=== PATIENT | male | born 1985 | race Caucasian/White ===

== ENCOUNTER 2017-09-07 18:53 | Emergency (ER) | payer BC ==
[2017-09-07 18:57] VITALS: TEMP 98
--- NOTE | 2017-09-07 19:27 | ED ---
Abdominal Pain HPI - General Chief Complaint: Abdominal Pain Stated Complaint: NVD Time Seen by Provider: 09/07/17 19:27 Source: patient Mode of arrival: ambulatory Limitations: no limitations - History of Present Illness Initial Comments: Patient presents with vomiting and diarrhea for one day. States she had to leave work this morning because of it. Since she had frequent diarrhea and vomiting today, although vomiting is resolved at this time. States nothing more is coming out when he tries to have a bowel movement. Patient states she' s had generalized dull cramping pains throughout his entire abdomen. Denies fevers, chills, URI symptoms, denies urinary symptoms. Patient states she saw small amount of blood on toilet paper and outside of the stool. States he sits on the toilet generally and strains hard for a long time before having bowel movements. States he has intermittent scant amount of blood similar to this over the past one year. Has never seen a physician for. Denies history of intra-abdominal pathology, bowel disease, Crohn's, colitis. Denies any family history of bowel disease other than colon cancer at an older age. - Related Data Home Medications Medication Instructions Recorded Confirmed Venlafaxine HCl ER [Effexor Xr] 37.5 mg PO DAILY 09/07/17 09/07/17 Previous Rx's Medication Instructions Recorded Dicyclomine [Bentyl] 10 mg PO BID PRN #10 capsule 09/07/17 Ondansetron Odt [Zofran Odt] 4 mg PO Q8HR PRN #10 tab 09/07/17 Allergies Allergy/AdvReac Type Severity Reaction Status Date / Time No Known Allergies Allergy Unverified 09/07/17 19:21 Review of Systems ROS Statement: Those systems with pertinent positive or pertinent negative responses have been documented in the HPI. ROS Other: All systems not noted in ROS Statement are negative. Constitutional: Denies: fever, chills, weakness Eyes: Denies: vision change ENT: Denies: throat pain, congestion Respiratory: Denies: cough, dyspnea Cardiovascular: Denies: chest pain, palpitations Endocrine: Denies: fatigue Gastrointestinal: Reports: abdominal pain, nausea, vomiting, diarrhea. Denies: constipation, hematemesis, melena, hematochezia Genitourinary: Denies: dysuria, frequency Musculoskeletal: Denies: back pain Skin: Denies: rash, change in color Neurological: Denies: headache Hematological/Lymphatic: Denies: easy bleeding Past Medical History Past Medical History: No Reported History History of Any Multi-Drug Resistant Organisms: None Reported Past Surgical History: No Surgical Hx Reported Past Psychological History: Anxiety Smoking Status: Current every day smoker Past Alcohol Use History: Occasional Past Drug Use History: None Reported General Exam - General Exam Comments Initial Comments: Sitting up in bed. No acute chest. Conversing normally. Calm, pleasant. Well appearing. Well-groomed well-dressed. Not ill appearing. Does not appear in pain. Limitations: no limitations General appearance: alert, in no apparent distress Head exam: Present: atraumatic, normocephalic Eye exam: Present: normal appearance, PERRL, EOMI ENT exam: Present: normal exam Neck exam: Present: normal inspection Respiratory exam: Present: normal lung sounds bilaterally. Absent: respiratory distress, wheezes, rales Cardiovascular Exam: Present: regular rate, normal rhythm GI/Abdominal exam: Present: soft, normal bowel sounds, other (Abdomen is soft, nontender, nondistended.). Absent: distended, tenderness, guarding, rebound, rigid, diminished bowel sounds, hyperactive bowel sounds, hypoactive bowel sounds Extremities exam: Present: normal inspection Neurological exam: Present: alert, oriented X3 Psychiatric exam: Present: normal affect, normal mood Skin exam: Present: warm, dry, intact, normal color. Absent: rash, cyanosis, diaphoretic Course Vital Signs 09/07/17 18:55 Temperature 98.0 F Pulse Rate 101 H Respiratory 20 Rate Blood Pressure 141/87 O2 Sat by Pulse 99 Oximetry Medical Decision Making - Medical Decision Making Abdomen nontender, patient with onlymild generalized pain at this time. Do not feel imaging warranted at this time. IV fluids, Zofran, Bentyl, Toradol given. Significant lab abnormalities. Hemoglobin within normal range. Patient reevaluated, updated with all results. Abdomen remains nontender. No vomiting or diarrhea in the ER. Patient feels comfortable being discharged home. Patient given prescription for Zofran, Bentyl for home. Patient to follow primary care physician return to ER for new or worsening symptoms. - Lab Data Result diagrams: 09/07/17 19:54 09/07/17 19:54 Lab Results 05/10/18 05/10/18 05/10/18 Range/Units 19:54 19:54 20:00 WBC 8.8 (3.8-10.6) k/uL RBC 5.21 (4.30-5.90) m/uL Hgb 16.1 (13.0-17.5) gm/dL Hct 44.8 (39.0-53.0) % MCV 86.0 (80.0-100.0) fL MCH 31.0 (25.0-35.0) pg MCHC 36.0 (31.0-37.0) g/dL RDW 11.9 (11.5-15.5) % Plt Count 269 (150-450) k/uL Neutrophils % 67 % Lymphocytes % 22 % Monocytes % 6 % Eosinophils % 2 % Basophils % 1 % Neutrophils # 5.9 (1.3-7.7) k/uL Lymphocytes # 2.0 (1.0-4.8) k/uL Monocytes # 0.6 (0-1.0) k/uL Eosinophils # 0.2 (0-0.7) k/uL Basophils # 0.1 (0-0.2) k/uL Sodium 143 (137-145) mmol/L Potassium 4.3 (3.5-5.1) mmol/L Chloride 103 (98-107) mmol/L Carbon Dioxide 26 (22-30) mmol/L Anion Gap 14 mmol/L BUN 16 (9-20) mg/dL Creatinine 0.83 (0.66-1.25) mg/dL Est GFR (CKD-EPI)AfAm >90 (>60 ml/min/1.73 sqM) Est GFR (CKD-EPI)NonAf >90 (>60 ml/min/1.73 sqM) Glucose 78 (74-99) mg/dL Calcium 10.0 (8.4-10.2) mg/dL Total Bilirubin 0.4 (0.2-1.3) mg/dL AST 23 (17-59) U/L ALT 28 (21-72) U/L Alkaline Phosphatase 42 (38-126) U/L Total Protein 7.3 (6.3-8.2) g/dL Albumin 4.8 (3.5-5.0) g/dL Lipase 50 (23-300) U/L Urine Color Yellow Urine Appearance Clear (Clear) Urine pH 6.0 (5.0-8.0) Ur Specific [place] 1.022 (1.001-1.035) Urine Protein Negative (Negative) Urine Glucose (UA) Negative (Negative) Urine Ketones Trace H (Negative) Urine Blood Negative (Negative) Urine Nitrite Negative (Negative) Urine Bilirubin Negative (Negative) Urine Urobilinogen <2.0 (<2.0) mg/dL Ur Leukocyte Esterase Negative (Negative) Disposition Clinical Impression: Blood in stool, Diarrhea, Vomiting Disposition: HOME SELF-CARE Condition: Good Instructions: Acute Diarrhea (ED), Acute Nausea and Vomiting (ED), Gastroenteritis (ED), Rectal Bleeding (ED) Additional Instructions: Follow-up with primary care physician one to 2 days for reevaluation. Return to ER for new or worsening symptoms. Prescriptions: Dicyclomine [Bentyl] 10 mg PO BID PRN #10 capsule PRN Reason: abdominal cramps Ondansetron Odt [Zofran Odt] 4 mg PO Q8HR PRN #10 tab PRN Reason: Nausea Is patient prescribed a controlled substance at d/c from ED?: No Referrals: Darin Badillo MD [Primary Care Provider] - 1-2 days
[2017-09-07] MEDS ORDERED: ONDANSETRON 4 MG/2 ML VIAL IVP STA (19:35)
[2017-09-07] MEDS ORDERED: SODIUM CHLORIDE 0.9% 1,000 ML IV STA (19:35)
[2017-09-07] MEDS ORDERED: KETOROLAC 30 MG/ML 1 ML VIAL IVP STA (19:35)
[2017-09-07] MEDS ORDERED: DICYCLOMINE 20 MG TAB PO STA (19:38)
[2017-09-07 20:10] LABS: Basophils # (A) 0.1 k/uL (0-0.2); Basophils % (A) 1 %; Eosinophils # (A) 0.2 k/uL (0-0.7); Eosinophils % (A) 2 %; HCT 44.8 % (39.0-53.0); HGB 16.1 gm/dL (13.0-17.5); Lymphocytes % (A) 22 %; Monocytes # (A) 0.6 k/uL (0-1.0); Monocytes % (A) 6 %; Neutrophils # (A) 5.9 k/uL (1.3-7.7); Neutrophils % (A) 67 %; Platelet Count 269 k/uL (150-450); RBC 5.21 m/uL (4.30-5.90); RDW 11.9 % (11.5-15.5); WBC 8.8 k/uL (3.8-10.6)
[2017-09-07 20:18] LABS: Appearance,Urine Clear (Clear); Bilirubin,Urine Negative (Negative); Blood,Urine Negative (Negative); Color,Urine Yellow; Glucose,Urine (UA) Negative (Negative); Ketones,Urine Trace (Negative); Leukocyte Esterase,Urine Negative (Negative); Nitrite,Urine Negative (Negative); Protein,Urine Negative (Negative); Specific Gravity,Urine 1.022 (1.001-1.035); Urobilinogen,Urine <2.0 mg/dL (<2.0)
[2017-09-07 20:20] LABS: ALT 28 U/L (21-72); AST 23 U/L (17-59); Albumin 4.8 g/dL (3.5-5.0); Alkaline Phosphatase 42 U/L (38-126); Anion Gap 14 mmol/L; Blood Urea Nitrogen 16 mg/dL (9-20); Carbon Dioxide 26 mmol/L (22-30); Chloride 103 mmol/L (98-107); Glucose 78 mg/dL (74-99); Lipase 50 U/L (23-300); Potassium 4.3 mmol/L (3.5-5.1); Sodium 143 mmol/L (137-145); Total Bilirubin 0.4 mg/dL (0.2-1.3); Total Protein 7.3 g/dL (6.3-8.2)
[2017-09-07 20:45] VITALS: BP 129/86; PULSE 77; RESP 18
== END 2017-09-07 20:45 | disposition home or self-care (01) ==
LOC: EC 18:53
DX: K92.1 Melena (principal); R19.7 Diarrhea, unspecified; R11.10 Vomiting, unspecified; R10.84 Generalized abdominal pain; F41.9 Anxiety disorder, unspecified; F17.200 Nicotine dependence, unspecified, uncomplicated; Z79.899 Other long term (current) drug therapy
CPT/HCPCS: 36415; 80053; 83690; 85025; 81003; 99284; 96374; 96375; 96361; J2405; J1885

== ENCOUNTER 2018-03-11 12:59 | Emergency (ER) | payer BC ==
[2018-03-11] MEDS ORDERED: SODIUM CHLORIDE 0.9% 1,000 ML IV STA (13:47)
--- NOTE | 2018-03-11 13:53 | ED ---
Recheck HPI - General Chief Complaint: Recheck/Abnormal Lab/Rx Stated Complaint: Recheck Time Seen by Provider: 03/11/18 13:19 Source: patient, RN notes reviewed, old records reviewed Mode of arrival: ambulatory Limitations: no limitations - History of Present Illness Initial Comments: Patient is a 32-year-old male with recent diagnosis of TIA one week ago. Patient reports that he's been feeling having a delay and thought process feeling fatigued and "spacey". Patient reports that he was sent here from his boss. 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 Patient states that he has no pain at this time. He is supposed follow-up tomorrow with his PCP. Patient reports symptoms one week ago started as a focal seizure like activity. Patient denies any other complaints. - Related Data Home Medications Medication Instructions Recorded Confirmed Aspirin/Acetaminophen/Caffeine 1 tab PO DAILY PRN 03/02/18 03/02/18 [Excedrin Migraine Caplet] Testosterone Cypionate 200 mg IM QMONTH 03/02/18 03/02/18 [Depo-Testosterone] Venlafaxine HCl ER [Effexor Xr] 75 mg PO DAILY 03/02/18 03/02/18 Allergies Allergy/AdvReac Type Severity Reaction Status Date / Time No Known Allergies Allergy Verified 03/11/18 13:10 Review of Systems ROS Statement: Those systems with pertinent positive or pertinent negative responses have been documented in the HPI. ROS Other: All systems not noted in ROS Statement are negative. Past Medical History Past Medical History: GI Bleed Additional Past Medical History / Comment(s): pleurisy, migraines, gi bleed f/u with pcp History of Any Multi-Drug Resistant Organisms: None Reported Past Surgical History: No Surgical Hx Reported Additional Past Surgical History / Comment(s): cysts removed Past Anesthesia/Blood Transfusion Reactions: No Reported Reaction Past Psychological History: Anxiety Smoking Status: Current some day smoker Past Alcohol Use History: Occasional Past Drug Use History: None Reported - Past Family History Mother Family Medical History: Thyroid Disorder Additional Family Medical History / Comment(s): uncle with colon cancer, aunt with breast cancer Father Family Medical History: Thyroid Disorder General Exam - General Exam Comments Initial Comments: Well appearing 32 year old male, no acute distress. Limitations: no limitations General appearance: alert, in no apparent distress Head exam: Present: atraumatic, normocephalic, normal inspection Eye exam: Present: normal appearance, PERRL, EOMI. Absent: scleral icterus, conjunctival injection, periorbital swelling ENT exam: Present: normal exam, mucous membranes moist Neck exam: Present: normal inspection. Absent: tenderness, meningismus, lymphadenopathy Respiratory exam: Present: normal lung sounds bilaterally. Absent: respiratory distress, wheezes, rales, rhonchi, stridor Cardiovascular Exam: Present: regular rate, normal rhythm, normal heart sounds. Absent: systolic murmur, diastolic murmur, rubs, gallop, clicks GI/Abdominal exam: Present: soft, normal bowel sounds. Absent: distended, tenderness, guarding, rebound, rigid Extremities exam: Present: normal inspection, full ROM, normal capillary refill. Absent: tenderness, pedal edema, joint swelling, calf tenderness Back exam: Present: normal inspection Neurological exam: Present: alert, oriented X3, CN II-XII intact Expanded Patient oriented to: Present: person, place, time Speech: Present: fluid speech Cranial nerves: EOM's Intact: Normal Cerebellar function: Finger to Nose: Normal Upper motor neuron: Pronator Drift: Normal Sensory exam: Upper Extremity Light Touch: Normal, Lower Extremity Light Touch: Normal Motor strength exam: RUE: 5, LUE: 5, RLE: 5, LLE: 5 Eye Response: (4) open spontaneously Motor Response: (6) obeys commands Verbal Response: (5) oriented [place] Total: 15 Psychiatric exam: Present: normal affect, normal mood Skin exam: Present: warm, dry, intact, normal color. Absent: rash Course Vital Signs 03/11/18 03/11/18 13:08 15:17 Temperature 98.1 F 98 F Pulse Rate 91 63 Respiratory 16 18 Rate Blood Pressure 122/88 119/88 O2 Sat by Pulse 99 98 Oximetry Medical Decision Making - Medical Decision Making 32 year old male presents to ED with feeling "spacey" and delayed thought process,that has been consistent since diagnosis of TIA one week ago. Patient has no neurological deficits, otherwise appears well. Today, labs so no acute changes. Patient EKG shows no acute changes. Patient is planned to see PCP and neurology tomorrow to schedule MRI. He had normal CT scan last week. Discussed MRI is next most important step. Patient case discussed with Dr. Jarrell, whom also examined patient. Agreed to discharge patient home to family and to be monitored. Patient agrees to treatment plan and will comply. - Lab Data Result diagrams: 03/11/18 14:15 03/11/18 14:15 Lab Results 03/11/18 03/11/18 03/11/18 Range/Units 14:15 14:15 14:15 WBC 5.8 (3.8-10.6) k/uL RBC 5.44 (4.30-5.90) m/uL Hgb 16.8 (13.0-17.5) gm/dL Hct 49.0 (39.0-53.0) % MCV 90.1 (80.0-100.0) fL MCH 30.8 (25.0-35.0) pg MCHC 34.2 (31.0-37.0) g/dL RDW 12.0 (11.5-15.5) % Plt Count 258 (150-450) k/uL Neutrophils % 55 % Lymphocytes % 30 % Monocytes % 8 % Eosinophils % 4 % Basophils % 1 % Neutrophils # 3.2 (1.3-7.7) k/uL Lymphocytes # 1.8 (1.0-4.8) k/uL Monocytes # 0.4 (0-1.0) k/uL Eosinophils # 0.2 (0-0.7) k/uL Basophils # 0.0 (0-0.2) k/uL PT 10.2 (9.0-12.0) sec INR 1.0 (<1.2) APTT 26.4 (22.0-30.0) sec Sodium 140 (137-145) mmol/L Potassium 4.7 (3.5-5.1) mmol/L Chloride 103 (98-107) mmol/L Carbon Dioxide 26 (22-30) mmol/L Anion Gap 11 mmol/L BUN 15 (9-20) mg/dL Creatinine 0.84 (0.66-1.25) mg/dL Est GFR (CKD-EPI)AfAm >90 (>60 ml/min/1.73 sqM) Est GFR (CKD-EPI)NonAf >90 (>60 ml/min/1.73 sqM) Glucose 92 (74-99) mg/dL Calcium 10.1 (8.4-10.2) mg/dL Total Bilirubin 0.7 (0.2-1.3) mg/dL AST 26 (17-59) U/L ALT 36 (21-72) U/L Alkaline Phosphatase 39 (38-126) U/L Total Protein 8.2 (6.3-8.2) g/dL Albumin 5.0 (3.5-5.0) g/dL TSH 1.280 (0.465-4.680) mIU/L 03/11/18 15:59 EKG performed at 1410 shows normal sinus rhythm with sinus arrhythmia, normal EKG. Ventricular rate of 74 bpm. IN interval is 148 ms. QRS duration 80 ms. QT QTc is 360/401 ms. Disposition Clinical Impression: Fatigue Disposition: HOME SELF-CARE Condition: Good Instructions: Weakness (ED) Additional Instructions: Patient advised to follow-up with her PCP tomorrow. Again following up with neurology. Return to the emergency department if any alarming signs or symptoms occur. Patient should be monitored with another person in case there is any further concerning signs or symptoms such as seizure-like activity. Is patient prescribed a controlled substance at d/c from ED?: No Referrals: Darin Badillo MD [Primary Care Provider] - 1-2 days Time of Disposition: 14:50
[2018-03-11 14:27] LABS: Basophils % (A) 1 %; Eosinophils # (A) 0.2 k/uL (0-0.7); Eosinophils % (A) 4 %; HGB 16.8 gm/dL (13.0-17.5); Lymphocytes # (A) 1.8 k/uL (1.0-4.8); Lymphocytes % (A) 30 %; MCH 30.8 pg (25.0-35.0); MCHC 34.2 g/dL (31.0-37.0); MCV 90.1 fL (80.0-100.0); Mean Platelet Volume 7.2; Monocytes # (A) 0.4 k/uL (0-1.0); Monocytes % (A) 8 %; Neutrophils # (A) 3.2 k/uL (1.3-7.7); Neutrophils % (A) 55 %; Platelet Count 258 k/uL (150-450); RBC 5.44 m/uL (4.30-5.90); WBC 5.8 k/uL (3.8-10.6)
[2018-03-11 14:37] LABS: Partial Thromboplastin Time 26.4 sec (22.0-30.0); Prothrombin Time 10.2 sec (9.0-12.0)
[2018-03-11 14:38] LABS: ALT 36 U/L (21-72); AST 26 U/L (17-59); Alkaline Phosphatase 39 U/L (38-126); Anion Gap 11 mmol/L; Blood Urea Nitrogen 15 mg/dL (9-20); Calcium 10.1 mg/dL (8.4-10.2); Carbon Dioxide 26 mmol/L (22-30); Chloride 103 mmol/L (98-107); Glucose 92 mg/dL (74-99); Potassium 4.7 mmol/L (3.5-5.1); Sodium 140 mmol/L (137-145); Total Bilirubin 0.7 mg/dL (0.2-1.3); Total Protein 8.2 g/dL (6.3-8.2)
[2018-03-11 15:18] VITALS: BP 119/88; PULSE 63; RESP 18; TEMP 98
== END 2018-03-11 15:17 | disposition home or self-care (01) ==
LOC: EC 12:59
DX: R53.83 Other fatigue (principal); F41.9 Anxiety disorder, unspecified; F17.200 Nicotine dependence, unspecified, uncomplicated; Z86.73 Personal history of transient ischemic attack (TIA), and cerebral infarction without residual deficits; Z79.899 Other long term (current) drug therapy
CPT/HCPCS: 36415; 80053; 84443; 85025; 85610; 85730; 93005; 96360; 99284

== ENCOUNTER 2018-04-06 09:31 | Day surgery (SDC) | payer BC ==
[2018-04-05 10:31] VITALS: BMI 29.8
[~2018-04-06 09:31] MED LIST: LACTATED RINGERS 1,000 ML IV SCH
[2018-04-06] MEDS ORDERED: LIDOCAINE 1% 20 ML VIAL (10MG/ML) FOR IV START INTRADERMA ONE (09:50)
[2018-04-06 10:01] VITALS: RESP 16; TEMP 98.9
[2018-04-06] MEDS ORDERED: fentaNYL (PF) 50 MCG/ML 2 ML AMP IV ONE (10:07)
[2018-04-06] MEDS ORDERED: PROPOFOL 10 MG/ML 20 ML VIAL IV ONE (10:16)
--- NOTE | 2018-04-06 10:35 | P.GSHP ---
History of Present Illness H&P Date: 04/06/18 Chief Complaint: GI bleed This is a 32-year-old male who presents today for colonoscopy. Patient's had issues with GI bleed. 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,Empty Sella Syndrome,pleurisy, migraines, gi bleed History of Any Multi-Drug Resistant Organisms: None Reported Past Surgical History: No Surgical Hx Reported Additional Past Surgical History / Comment(s): cysts removed Past Anesthesia/Blood Transfusion Reactions: No Reported Reaction Smoking Status: Current some day smoker - Past Family History Mother Family Medical History: Thyroid Disorder Additional Family Medical History / Comment(s): uncle with colon cancer, aunt with breast cancer Father Family Medical History: Thyroid Disorder Medications and Allergies Home Medications Medication Instructions Recorded Confirmed Type Venlafaxine HCl ER [Effexor Xr] 75 mg PO QAM 03/02/18 04/05/18 History Aspirin 81 mg PO DAILY 04/05/18 04/05/18 History Testosterone Cypionate 200 mg IM Q30D 04/05/18 04/05/18 History [Depo-Testosterone] Allergies Allergy/AdvReac Type Severity Reaction Status Date / Time No Known Allergies Allergy Verified 04/05/18 10:23 Surgical - Exam Vital Signs Temp Pulse Resp BP Pulse Ox 98.9 F 96 16 127/76 96 04/06/18 10:00 04/06/18 10:00 04/06/18 10:00 04/06/18 10:00 04/06/18 10:00 - General well developed, no distress - Eyes PERRL - ENT normal pinna - Neck no masses - Respiratory normal expansion - Cardiovascular Rhythm: regular - Abdomen Abdomen: soft, non tender Assessment and Plan Assessment: GI bleed. We'll perform colonoscopy.
--- NOTE | 2018-04-06 10:53 | P.OP ---
Date of Procedure: 04/06/18 Preoperative Diagnosis: GI bleed Postoperative Diagnosis: Mild internal hemorrhoids Normal colonoscopy Procedure(s) Performed: Colonoscopy Anesthesia: MAC Surgeon: Arley Dale Pathology: none sent Condition: stable Disposition: PACU Description of Procedure: PROCEDURE: The patient was placed on the endoscopy table in the lateral position. Digital rectal examination was performed which revealed no abnormalities. The prostate was symmetrical without nodules. Flexible colonoscope was then placed in the patient's anus and passed throughout the entire colon. The ileocecal valve was visualized. The cecum, ascending, transverse, descending and sigmoid colon were normal. The rectum was normal as well. There were no masses, polyps or diverticula noted in the entire colon. Scope was then withdrawn through the anus and some minimal internal hemorrhoids were noted. There is no evidence of active GI bleed.
[2018-04-06 11:11] VITALS: BP 108/72; PULSE 99
== END 2018-04-06 11:34 | disposition home or self-care (01) ==
LOC: ORWHC2ENDO 09:31
PROVIDERS: ATTEND Surgery
DX: K64.8 Other hemorrhoids (principal); F17.200 Nicotine dependence, unspecified, uncomplicated; Z86.73 Personal history of transient ischemic attack (TIA), and cerebral infarction without residual deficits; Z80.0 Family history of malignant neoplasm of digestive organs; Z79.899 Other long term (current) drug therapy; Z79.82 Long term (current) use of aspirin; Z79.890 Hormone replacement therapy
CPT/HCPCS: 45378; J3010; J2704

== ENCOUNTER → 2018-04-18 | Outpatient (CLI) | payer BC ==
[2018-04-18 16:20] LABS: T4, Free (Free Thyroxine) 1.1 ng/dL (0.80-1.80)
[2018-04-18 18:16] LABS: ACTH 32.1 pg/mL (0.00-45.99)
== END | disposition home or self-care (01) ==
LOC: LABWHC1 10:12
PROVIDERS: ATTEND Internal Medicine Endocrinology, Diabetes & Metabolism
DX: E23.6 Other disorders of pituitary gland (principal)
CPT/HCPCS: 36415; 82024; 82533; 84146; 84305; 84439; 84443; 84480

== ENCOUNTER 2018-07-14 09:24 | Emergency (ER) | payer BC ==
[2018-07-14 09:29] VITALS: RESP 18
[2018-07-14] MEDS ORDERED: MECLIZINE 12.5 MG TAB PO STA (10:11)
--- NOTE | 2018-07-14 10:34 | ED ---
General Adult HPI - General Chief complaint: Recheck/Abnormal Lab/Rx Stated complaint: Tingling in hands Time Seen by Provider: 07/14/18 09:49 Source: patient, RN notes reviewed Mode of arrival: ambulatory Limitations: no limitations - History of Present Illness Initial comments: 32-year-old male presents emergency Department with chief complaint of diz ziness, extremity tingling. Patient states that started this morning when he woke up. Patient states he sat up quickly and symptoms started. He states he has no symptoms at rest worse with movement turning his head left and right. He has no current headache no chest pain or shortness of breath. Patient states she just did not feel well so he felt the need to be evaluated. Patient denies any palpitations, focal weakness. Patient denies any other associated complaints. - Related Data Home Medications Medication Instructions Recorded Confirmed Venlafaxine HCl ER [Effexor Xr] 75 mg PO QAM 03/02/18 07/14/18 Aspirin 81 mg PO DAILY 04/05/18 07/14/18 Testosterone Cypionate 100 mg IM WE 04/05/18 07/14/18 [Depo-Testosterone] Allergies Allergy/AdvReac Type Severity Reaction Status Date / Time No Known Allergies Allergy Verified 07/14/18 09:51 Review of Systems ROS Statement: Those systems with pertinent positive or pertinent negative responses have been documented in the HPI. ROS Other: All systems not noted in ROS Statement are negative. 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,Empty Sella Syndrome,pleurisy, migraines, gi bleed History of Any Multi-Drug Resistant Organisms: None Reported Past Surgical History: No Surgical Hx Reported Additional Past Surgical History / Comment(s): cysts removed Past Anesthesia/Blood Transfusion Reactions: No Reported Reaction Past Psychological History: Anxiety Smoking Status: Current some day smoker Past Alcohol Use History: None Reported Past Drug Use History: None Reported - Past Family History Mother Family Medical History: Thyroid Disorder Additional Family Medical History / Comment(s): uncle with colon cancer, aunt with breast cancer Father Family Medical History: Thyroid Disorder General Exam Limitations: no limitations General appearance: alert, in no apparent distress Head exam: Present: atraumatic, normocephalic, normal inspection Eye exam: Present: normal appearance, PERRL, EOMI. Absent: scleral icterus, conjunctival injection, periorbital swelling ENT exam: Present: normal exam, normal oropharynx, mucous membranes moist, TM's normal bilaterally Neck exam: Present: normal inspection, full ROM. Absent: tenderness, meningismus, lymphadenopathy Respiratory exam: Present: normal lung sounds bilaterally. Absent: respiratory distress, wheezes, rales, rhonchi, stridor Cardiovascular Exam: Present: regular rate, normal rhythm, normal heart sounds. Absent: systolic murmur, diastolic murmur, rubs, gallop, clicks GI/Abdominal exam: Present: soft, normal bowel sounds. Absent: distended, tenderness, guarding, rebound, rigid Extremities exam: Present: normal inspection, full ROM, normal capillary refill, other (Neurovascular intact). Absent: tenderness, pedal edema, joint swelling, calf tenderness Neurological exam: Present: alert, oriented X3, CN II-XII intact Skin exam: Present: warm, dry, intact, normal color. Absent: rash Course Vital Signs 07/14/18 07/14/18 09:26 10:50 Temperature 97.7 F Pulse Rate 92 Pulse Rate [ 97 Sitting] Pulse Rate [ 87 Standing] Pulse Rate [ 77 Supine Pulse Oximetery] Respiratory 18 Rate Blood Pressure 135/86 Blood Pressure 113/90 [Right Arm Sitting] Blood Pressure 115/81 [Right Arm Supine] Blood Pressure 124/98 [Standing] O2 Sat by Pulse 100 Oximetry Medical Decision Making - Medical Decision Making 32-year-old male presented from it chief complaint dizziness, hand tingling. Patient symptoms seemed more related to vertigo. Patient has no neurological deficits no focal weakness. Patient will be discharged with Antivert advised to rest, follow-up with PCP and return for any worsening symptoms. Disposition Clinical Impression: Vertigo, Paresthesia Disposition: HOME SELF-CARE Condition: Stable Instructions (If sedation given, give patient instructions): Vertigo (ED) Additional Instructions: Please return to the Emergency Department if symptoms worsen or any other concerns. Is patient prescribed a controlled substance at d/c from ED?: No Referrals: Darin Badillo MD [Primary Care Provider] - 1-2 days Time of Disposition: 11:10
[2018-07-14] MEDS ORDERED: ACETAMINOPHEN TAB 325 MG TAB PO STA (11:04)
[2018-07-14 12:04] VITALS: BP 128/83; PULSE 66; TEMP 98.2
== END 2018-07-14 12:04 | disposition home or self-care (01) ==
LOC: EC 09:24
DX: R20.2 Paresthesia of skin (principal); R42 Dizziness and giddiness; F41.9 Anxiety disorder, unspecified; F17.200 Nicotine dependence, unspecified, uncomplicated; Z79.82 Long term (current) use of aspirin; Z79.899 Other long term (current) drug therapy; Z86.73 Personal history of transient ischemic attack (TIA), and cerebral infarction without residual deficits
CPT/HCPCS: 93005; 99284

== ENCOUNTER 2018-11-28 22:02 | Emergency (ER) | payer BC ==
[2018-11-28] MEDS ORDERED: SODIUM CHLORIDE 0.9% 500 ML 500 ML IV STA (22:23)
[2018-11-28] MEDS ORDERED: ONDANSETRON 4 MG/2 ML VIAL IVP STA (22:24)
[2018-11-28] MEDS ORDERED: MORPHINE SULFATE 2 MG/ML SYRINGE IVP STA (22:24)
[2018-11-28] MEDS ORDERED: LIDOCAINE 1% INJ 10MG/ML (20 ML MDV) SQ ONE (22:24)
--- NOTE | 2018-11-28 22:31 | ED ---
General Adult HPI - General Chief complaint: Syncope Stated complaint: passed out/hit head on floor Time Seen by Provider: 11/28/18 22:16 Source: patient Mode of arrival: ambulatory Limitations: physical limitation - History of Present Illness Initial comments: 33-year-old male patient presents to the emergency department today for evaluation after experiencing a syncopal episode at home. Patient states he was giving himself an injection of testosterone, states that he feels like he may have hit a nerve because the pain was sudden and intense. Patient states his vision became fuzzy and then he passed out. Parent reports that he she heard a commotion in the bathroom, went in, and patient was lying on the floor unconscious. Patient had multiple lacerations to his face. Patient is currently reporting headache, neck pain, and intermittent blurred vision. Patient states he does feel nauseated but has not vomited. Denies any injury to his back or extremities. Patient denies any back pain, chest pain, shortness of breath, dizziness, weakness, abdominal pain, or difficulties with bowel movements or urination. States his last tetanus vaccine was in May 2018. - Related Data Home Medications Medication Instructions Recorded Confirmed Venlafaxine HCl ER [Effexor Xr] 75 mg PO QAM 03/02/18 07/14/18 Aspirin 81 mg PO DAILY 04/05/18 07/14/18 Testosterone Cypionate 100 mg IM WE 04/05/18 07/14/18 [Depo-Testosterone] Previous Rx's Medication Instructions Recorded Meclizine [Antivert] 25 mg PO TID PRN #15 tab 07/14/18 Allergies Allergy/AdvReac Type Severity Reaction Status Date / Time No Known Allergies Allergy Verified 07/14/18 09:51 Review of Systems ROS Statement: Those systems with pertinent positive or pertinent negative responses have been documented in the HPI. ROS Other: All systems not noted in ROS Statement are negative. 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,Empty Sella Syndrome,pleurisy, migraines, gi bleed History of Any Multi-Drug Resistant Organisms: None Reported Past Surgical History: No Surgical Hx Reported Additional Past Surgical History / Comment(s): cysts removed Past Anesthesia/Blood Transfusion Reactions: No Reported Reaction Past Psychological History: Anxiety Smoking Status: Current some day smoker Past Alcohol Use History: None Reported Past Drug Use History: None Reported - Past Family History Mother Family Medical History: Thyroid Disorder Additional Family Medical History / Comment(s): uncle with colon cancer, aunt with breast cancer Father Family Medical History: Thyroid Disorder General Exam Limitations: physical limitation General appearance: alert, in no apparent distress, other (Physical well- developed, well-nourished adult male patient in no acute distress. Vital signs upon presentation are temperature 98.0F, pulse 74, respirations 16, blood pressure 114/80, pulse ox 97% on room air.) Head exam: Present: other (There is 3 cm laceration noted to the left forehead. There is a small superficial abrasion noted to the left supraorbital region just above the eyebrow. There is small abrasion noted to the right temporal region.) Eye exam: Present: normal appearance, PERRL, EOMI. Absent: scleral icterus, conjunctival injection, nystagmus, periorbital swelling, periorbital tenderness ENT exam: Present: normal exam, normal oropharynx, mucous membranes moist Neck exam: Present: tenderness (Posterior cervical tenderness), full ROM. Absent: normal inspection, meningismus, lymphadenopathy Respiratory exam: Present: normal lung sounds bilaterally. Absent: respiratory distress, wheezes, rales, rhonchi, stridor Cardiovascular Exam: Present: regular rate, normal rhythm, normal heart sounds. Absent: systolic murmur, diastolic murmur, rubs, gallop, clicks GI/Abdominal exam: Present: soft, normal bowel sounds. Absent: distended, tenderness, guarding, rebound, rigid Back exam: Present: normal inspection, other (Nontender, no step-off, no deformity to firm midline palpation of the thoracic and lumbar vertebrae. Full range of motion without pain or limitation.). Absent: vertebral tenderness Neurological exam: Present: alert, oriented X3, CN II-XII intact Psychiatric exam: Present: normal affect, normal mood Skin exam: Present: warm, dry, intact, normal color. Absent: rash Course Vital Signs 11/28/18 11/28/18 11/29/18 22:09 23:38 00:08 Temperature 98.0 F Pulse Rate 74 61 59 L Respiratory 16 18 18 Rate Blood Pressure 114/80 114/77 120/76 O2 Sat by Pulse 97 100 96 Oximetry 11/29/18 00:56 Temperature 98.6 F Pulse Rate 70 Respiratory 18 Rate Blood Pressure 123/78 O2 Sat by Pulse 99 Oximetry EKG Findings - EKG Comments: EKG Findings:: EKG obtained at 2254 shows normal sinus rhythm with a ventricular rate of 76, MN interval 156, QRS duration 92, QT 358, QTC 402. No evidence of ST elevation or depression. Procedures - Laceration Laceration #1 Consent Obtained: verbal consent Indication: laceration Site: face (Left forehead) Size (cm): 3 Description: linear Depth: simple, single layer Anesthetic Used: lidocaine 1% Anesthesia Technique: local infiltration Amount (mls): 3 Pre-repair: irrigated extensively Type of Sutures: nylon Size of Sutures: 6-0 Number of Sutures: 4 Technique: simple, interrupted Patient Tolerated Procedure: well, no complications Medical Decision Making - Medical Decision Making 33-year-old male patient presented to the emergency department today for evaluation after experiencing a syncopal episode with head injury. Physical examination did reveal left frontal hematoma with laceration. Has a small laceration above the left eyebrow and one to the right temporal region. CT of the brain and C-spine were obtained and showed no acute abnormalities. Labs reviewed and are unremarkable. EKG was normal sinus rhythm. Given patient's symptoms of headache and dizziness we will treat for concussion. Laceration was repaired as documented. He is instructed to return in 5 days for suture removal. We did discuss decreased mental and physical activity. He is instructed to take Tylenol Motrin for pain control. He is instructed to follow- up with his primary care physician for recheck in 1-2 days. Return parameters were discussed in detail. He verbalizes understanding and agrees with this plan. - Lab Data Result diagrams: 11/28/18 22:53 11/28/18 22:53 Lab Results 11/28/18 11/28/18 11/28/18 Range/Units 22:53 22:53 22:53 WBC 10.3 (3.8-10.6) k/uL RBC 5.32 (4.30-5.90) m/uL Hgb 16.1 (13.0-17.5) gm/dL Hct 47.5 (39.0-53.0) % MCV 89.2 (80.0-100.0) fL MCH 30.2 (25.0-35.0) pg MCHC 33.9 (31.0-37.0) g/dL RDW 12.0 (11.5-15.5) % Plt Count 294 (150-450) k/uL Neutrophils % 65 % Lymphocytes % 23 % Monocytes % 7 % Eosinophils % 2 % Basophils % 0 % Neutrophils # 6.7 (1.3-7.7) k/uL Lymphocytes # 2.4 (1.0-4.8) k/uL Monocytes # 0.8 (0-1.0) k/uL Eosinophils # 0.2 (0-0.7) k/uL Basophils # 0.0 (0-0.2) k/uL PT 10.5 (9.0-12.0) sec INR 1.0 (<1.2) APTT 24.9 (22.0-30.0) sec Sodium 140 (137-145) mmol/L Potassium 4.1 (3.5-5.1) mmol/L Chloride 104 (98-107) mmol/L Carbon Dioxide 27 (22-30) mmol/L Anion Gap 9 mmol/L BUN 21 H (9-20) mg/dL Creatinine 0.79 (0.66-1.25) mg/dL Est GFR (CKD-EPI)AfAm >90 (>60 ml/min/1.73 sqM) Est GFR (CKD-EPI)NonAf >90 (>60 ml/min/1.73 sqM) Glucose 91 (74-99) mg/dL Calcium 9.3 (8.4-10.2) mg/dL Total Bilirubin 0.2 (0.2-1.3) mg/dL AST 21 (17-59) U/L ALT 21 (21-72) U/L Alkaline Phosphatase 54 (38-126) U/L Troponin I (0.000-0.034) ng/mL Total Protein 7.5 (6.3-8.2) g/dL Albumin 4.6 (3.5-5.0) g/dL 11/28/18 Range/Units 22:53 WBC (3.8-10.6) k/uL RBC (4.30-5.90) m/uL Hgb (13.0-17.5) gm/dL Hct (39.0-53.0) % MCV (80.0-100.0) fL MCH (25.0-35.0) pg MCHC (31.0-37.0) g/dL RDW (11.5-15.5) % Plt Count (150-450) k/uL Neutrophils % % Lymphocytes % % Monocytes % % Eosinophils % % Basophils % % Neutrophils # (1.3-7.7) k/uL Lymphocytes # (1.0-4.8) k/uL Monocytes # (0-1.0) k/uL Eosinophils # (0-0.7) k/uL Basophils # (0-0.2) k/uL PT (9.0-12.0) sec INR (<1.2) APTT (22.0-30.0) sec Sodium (137-145) mmol/L Potassium (3.5-5.1) mmol/L Chloride (98-107) mmol/L Carbon Dioxide (22-30) mmol/L Anion Gap mmol/L BUN (9-20) mg/dL Creatinine (0.66-1.25) mg/dL Est GFR (CKD-EPI)AfAm (>60 ml/min/1.73 sqM) Est GFR (CKD-EPI)NonAf (>60 ml/min/1.73 sqM) Glucose (74-99) mg/dL Calcium (8.4-10.2) mg/dL Total Bilirubin (0.2-1.3) mg/dL AST (17-59) U/L ALT (21-72) U/L Alkaline Phosphatase (38-126) U/L Troponin I <0.012 (0.000-0.034) ng/mL Total Protein (6.3-8.2) g/dL Albumin (3.5-5.0) g/dL - Radiology Data Radiology results: report reviewed, image reviewed CT brain and C-spine without contrast are obtained. Report reviewed in its entirety. Impression by Dr. Calderon shows no acute intracranial abnormality. Mild left frontal soft tissue hematoma and laceration. No acute fracture. Cervical spine shows no acute medical abnormality. Disposition Clinical Impression: Syncope, Forehead laceration, Traumatic hematoma of forehead, Cervical strain, Head injury Disposition: HOME SELF-CARE Condition: Good Instructions (If sedation given, give patient instructions): Cervical Strain (ED), Care For Your Stitches (ED), Laceration (ED), Syncope (ED), Head Injury (ED) Additional Instructions: Cleanse wounds twice daily with warm water and antibacterial soap. Do not submerge lacerations in water including Lakes, pools, bathtub, or hot tub. Monitor for signs or symptoms of infection including but not limited to redness, swelling, drainage of pus, fever, or chills. Take Tylenol or Motrin for pain control. Follow-up with your primary care physician for recheck in 1-2 days. Return to the emergency department immediately for any new, worsening, or concerning symptoms. Is patient prescribed a controlled substance at d/c from ED?: No Referrals: Darin Badillo MD [Primary Care Provider] - 1-2 days Time of Disposition: 00:40
--- NOTE | 2018-11-28 23:29 | CT ---
EXAM: CT Head Without Intravenous Contrast CLINICAL HISTORY: ITS.REASON CT Reason: syncope. Laceration to left forehead. TECHNIQUE: Axial computed tomography images of the head/brain without intravenous contrast. CTDI is 45.2 mGy and DLP is 1126 mGy-cm. This CT exam was performed using one or more of the following dose reduction techniques: automated exposure control, adjustment of the mA and/or kV according to patient size, and/or use of iterative reconstruction technique. COMPARISON: CT head on 03/02/2018 FINDINGS: Brain: No acute infarct or hemorrhage. No extra-axial fluid collection. No mass effect or midline shift. Ventricles and sulci: Normal. No ventriculomegaly or intraventricular hemorrhage. Skull: Normal. No bony lesion or fracture. Subcutaneous tissues: Soft tissue hematoma and laceration in the left frontal region. Sinuses: Normal. No air-fluid levels or mucosal thickening. Mastoid air cells: Normal. Orbits: Grossly unremarkable. IMPRESSION: No acute intracranial abnormality. Mild left frontal soft tissue hematoma and laceration. No acute fracture. EXAM: CT Cervical Spine Without Intravenous Contrast CLINICAL HISTORY: ITS.REASON CT Reason: syncope. Laceration to left forehead. TECHNIQUE: Axial computed tomography images of the cervical spine without intravenous contrast. CTDI is 9.9 mGy and DLP is 290.3 mGy-cm. This CT exam was performed using one or more of the following dose reduction techniques: automated exposure control, adjustment of the mA and/or kV according to patient size, and/or use of iterative reconstruction technique. COMPARISON: None FINDINGS: Bones: Straightening of the normal cervical lordosis. No acute fracture or bony lesion. Disc spaces: No subluxation. No spinal canal stenosis or neuroforaminal stenosis. Soft tissues: Normal. Other: Mild cerumen in the right external auditory canal. Small scattered lymph nodes are likely reactive. IMPRESSION: No acute traumatic abnormality.
[2018-11-28 23:39] VITALS: RESP 18
[2018-11-28] MEDS ORDERED: KETOROLAC 30 MG/ML 1 ML VIAL IVP STA (23:54)
[2018-11-28 23:57] LABS: Basophils % (A) 0 %; Eosinophils # (A) 0.2 k/uL (0-0.7); Eosinophils % (A) 2 %; HCT 47.5 % (39.0-53.0); HGB 16.1 gm/dL (13.0-17.5); Lymphocytes # (A) 2.4 k/uL (1.0-4.8); Lymphocytes % (A) 23 %; MCH 30.2 pg (25.0-35.0); MCHC 33.9 g/dL (31.0-37.0); MCV 89.2 fL (80.0-100.0); Mean Platelet Volume 7.2; Monocytes # (A) 0.8 k/uL (0-1.0); Monocytes % (A) 7 %; Neutrophils # (A) 6.7 k/uL (1.3-7.7); Neutrophils % (A) 65 %; Platelet Count 294 k/uL (150-450); RBC 5.32 m/uL (4.30-5.90); WBC 10.3 k/uL (3.8-10.6)
[2018-11-29 00:04] LABS: ALT 21 U/L (21-72); AST 21 U/L (17-59); African American GFR (CKD) >90 (>60 ml/min/1.73 sqM); Albumin 4.6 g/dL (3.5-5.0); Alkaline Phosphatase 54 U/L (38-126); Anion Gap 9 mmol/L; Blood Urea Nitrogen 21 mg/dL (9-20); Calcium 9.3 mg/dL (8.4-10.2); Carbon Dioxide 27 mmol/L (22-30); Chloride 104 mmol/L (98-107); Glucose 91 mg/dL (74-99); Non-African American GFR(CKD) >90 (>60 ml/min/1.73 sqM); Potassium 4.1 mmol/L (3.5-5.1); Sodium 140 mmol/L (137-145); Total Bilirubin 0.2 mg/dL (0.2-1.3); Total Protein 7.5 g/dL (6.3-8.2)
[2018-11-29 00:06] LABS: Partial Thromboplastin Time 24.9 sec (22.0-30.0); Prothrombin Time 10.5 sec (9.0-12.0)
[2018-11-29 01:06] VITALS: BP 123/78; PULSE 70; TEMP 98.6
== END 2018-11-29 01:06 | disposition home or self-care (01) ==
LOC: EC 22:02
DX: S01.81XA Laceration without foreign body of other part of head, initial encounter (principal); S16.1XXA Strain of muscle, fascia and tendon at neck level, initial encounter; R55 Syncope and collapse; S06.0X9A Concussion with loss of consciousness of unspecified duration, initial encounter; S00.81XA Abrasion of other part of head, initial encounter; E23.6 Other disorders of pituitary gland; F41.9 Anxiety disorder, unspecified; F17.200 Nicotine dependence, unspecified, uncomplicated; Z79.82 Long term (current) use of aspirin; Z79.890 Hormone replacement therapy; Z79.899 Other long term (current) drug therapy; Z86.73 Personal history of transient ischemic attack (TIA), and cerebral infarction without residual deficits; W01.198A Fall on same level from slipping, tripping and stumbling with subsequent striking against other object, initial encounter; Y93.89 Activity, other specified; Y92.002 Bathroom of unspecified non-institutional (private) residence as the place of occurrence of the external cause
CPT/HCPCS: 36415; 93005; 80053; 84484; 85025; 85610; 85730; 72125; 70450; 99284; 12013; 96374; 96375 ×2; 96361; J2405; J2001; J2270

== ENCOUNTER 2019-04-01 07:52 | Emergency (ER) | payer BC ==
[2019-04-01 08:01] VITALS: BP 139/85; PULSE 86; RESP 18; TEMP 97.6
[2019-04-01] MEDS ORDERED: ACET/COD 300 MG/30 MG STARTER PACK 6 TAB BTL PO STA (08:15)
--- NOTE | 2019-04-01 08:21 | ED ---
ENT HPI - General Chief complaint: ENT Stated complaint: congestion Time Seen by Provider: 04/01/19 08:08 Source: patient, RN notes reviewed Mode of arrival: ambulatory Limitations: no limitations - History of Present Illness Initial comments: 33-year-old male presents emergency Department chief complaint of right-sided facial pain. Patient states has been present for last couple days. Patient has been taken Motrin with minimal relief. Patient states he does have some fillings on the right upper aspect. He states he feels sharp radiating pain. Denies any pain with ocular movement no fevers or chills no neck pain or neck stiffness. Patient has NO KNOWN DRUG ALLERGIES. Patient has mild rhinorrhea. - Related Data Home Medications Medication Instructions Recorded Confirmed Venlafaxine HCl ER [Effexor Xr] 75 mg PO QAM 03/02/18 07/14/18 Aspirin 81 mg PO DAILY 04/05/18 07/14/18 Testosterone Cypionate 100 mg IM WE 04/05/18 07/14/18 [Depo-Testosterone] Previous Rx's Medication Instructions Recorded Meclizine [Antivert] 25 mg PO TID PRN #15 tab 07/14/18 Allergies Allergy/AdvReac Type Severity Reaction Status Date / Time No Known Allergies Allergy Verified 04/01/19 07:57 Review of Systems ROS Statement: Those systems with pertinent positive or pertinent negative responses have been documented in the HPI. ROS Other: All systems not noted in ROS Statement are negative. 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,Empty Sella Syndrome,pleurisy, migraines, gi bleed History of Any Multi-Drug Resistant Organisms: None Reported Past Surgical History: No Surgical Hx Reported Additional Past Surgical History / Comment(s): cysts removed Past Anesthesia/Blood Transfusion Reactions: No Reported Reaction Past Psychological History: Anxiety Smoking Status: Current some day smoker Past Alcohol Use History: None Reported Past Drug Use History: Marijuana - Past Family History Mother Family Medical History: Thyroid Disorder Additional Family Medical History / Comment(s): uncle with colon cancer, aunt with breast cancer Father Family Medical History: Thyroid Disorder General Exam General appearance: alert, in no apparent distress Head exam: Present: atraumatic, normocephalic, normal inspection Eye exam: Present: normal appearance, PERRL, EOMI. Absent: scleral icterus, conjunctival injection, periorbital swelling ENT exam: Present: mucous membranes moist, TM's normal bilaterally, normal external ear exam, other (Mild tenderness the right maxillary no swelling or erythema). Absent: normal oropharynx (Multiple dental fillings noted right upper tenderness to palpation) Neck exam: Present: normal inspection, full ROM. Absent: tenderness, meningismus, lymphadenopathy Respiratory exam: Present: normal lung sounds bilaterally. Absent: respiratory distress, wheezes, rales, rhonchi, stridor Cardiovascular Exam: Present: regular rate, normal rhythm, normal heart sounds. Absent: systolic murmur, diastolic murmur, rubs, gallop, clicks Course Vital Signs 04/01/19 07:58 Temperature 97.6 F Pulse Rate 86 Respiratory 18 Rate Blood Pressure 139/85 O2 Sat by Pulse 98 Oximetry Medical Decision Making - Medical Decision Making Patient we treated for suspected dental infection. Patient has prescription for Pen-Vee K he is advised to fill it. Patient provided Tylenol with codeine all be discharged return parameters were discussed. Disposition Clinical Impression: Dental infection, Maxillary pain Disposition: HOME SELF-CARE Condition: Stable Instructions (If sedation given, give patient instructions): Toothache (ED) Additional Instructions: Please return to the Emergency Department if symptoms worsen or any other concerns. Is patient prescribed a controlled substance at d/c from ED?: No Referrals: Darin Badillo MD [Primary Care Provider] - 1-2 days Time of Disposition: 08:20
== END 2019-04-01 08:35 | disposition home or self-care (01) ==
LOC: EC 07:52
DX: K04.7 Periapical abscess without sinus (principal); R68.84 Jaw pain; F17.200 Nicotine dependence, unspecified, uncomplicated; Z79.82 Long term (current) use of aspirin; Z79.899 Other long term (current) drug therapy; Z86.73 Personal history of transient ischemic attack (TIA), and cerebral infarction without residual deficits
CPT/HCPCS: 99283

== ENCOUNTER → 2020-03-11 | Outpatient (CLI) | payer OTHER ==
[2020-03-11 16:00] LABS: Basophils # (A) 0.1 k/uL (0-0.2); Basophils % (A) 1 %; Eosinophils # (A) 0.1 k/uL (0-0.7); Eosinophils % (A) 2 %; HCT 51.1 % (39.0-53.0); HGB 16.9 gm/dL (13.0-17.5); Lymphocytes # (A) 1.6 k/uL (1.0-4.8); Lymphocytes % (A) 17 %; MCV 93.9 fL (80.0-100.0); Mean Platelet Volume 7.1; Monocytes # (A) 0.7 k/uL (0-1.0); Monocytes % (A) 7 %; Neutrophils # (A) 6.5 k/uL (1.3-7.7); Neutrophils % (A) 72 %; Platelet Count 314 k/uL (150-450); RBC 5.44 m/uL (4.30-5.90); RDW 11.7 % (11.5-15.5); WBC 9.1 k/uL (3.8-10.6)
[2020-03-12 00:38] LABS: ALT 29 U/L (10-49); AST 20 U/L (14-35); African American GFR (CKD) 130.5 (60.0-200.0); Albumin/Globulin Ratio 2.23 (1.60-3.17); Alkaline Phosphatase 48 U/L (41-126); BUN/Creat Ratio 13.33 Ratio (12.00-20.00); Calcium 10.2 mg/dL (8.7-10.3); Carbon Dioxide 24.7 mmol/L (21.6-31.8); Chloride 106 mmol/L (96-109); Chol/HDL Ratio 3.85; Cholesterol 200 mg/dL (0-200); Globulin 2.2 g/dL (1.6-3.3); Glucose 111 mg/dL (70-110); Non-African American GFR(CKD) 112.6 (60.0-200.0); Potassium 4.3 mmol/L (3.5-5.5); Sodium 141 mmol/L (135-145); Total Bilirubin 0.3 mg/dL (0.3-1.2); Total Protein 7.1 g/dL (6.2-8.2)
[2020-03-12 00:50] LABS: Prolactin 7.5 ng/mL (2.1-17.7)
[2020-03-12 02:22] LABS: Hepatitis C IgG Antibody Non-Reactive (Non-Reactive)
[2020-03-12 03:39] LABS: Follicle Stimulating Hormone <0.3 mIU/mL; Luteinizing Hormone <0.1 mIU/mL
== END | disposition home or self-care (01) ==
LOC: LABWHC1 15:27
PROVIDERS: ATTEND Nurse Practitioner Family
DX: Z00.00 Encounter for general adult medical examination without abnormal findings (principal); Z20.9 Contact with and (suspected) exposure to unspecified communicable disease; E23.6 Other disorders of pituitary gland
CPT/HCPCS: 36415; 80053; 80061; 82024; 83001; 83002; 84146; 84402; 84403; 84439; 84443; 85025; 86803

== ENCOUNTER → 2020-09-21 | Outpatient (CLI) | payer BC, OTHER ==
--- NOTE | 2020-09-21 19:19 | CT ---
EXAMINATION TYPE: CT facial bones wo/w con DATE OF EXAM: 09/21/2020 COMPARISON: None HISTORY: Acute maxillary sinusitis and maxilla pain. CT DLP: 1558.1 mGycm Automated exposure control for dose reduction was used. CONTRAST: Performed without and with IV Contrast, patient injected with 100ml mL of Isovue 300. Images obtained from the bottom of the mandible to the top of the frontal sinuses without contrast. Mandibular ring is intact. The temporomandibular joints are intact. Zygomatic arches appear normal. T he maxilla is intact. There is normal appearing nasal bone. There is no evidence of retro-orbital mas s. The globes are symmetric. There is no evidence of orbital blowout fracture. There is no evidence o f soft tissue mass. There is fairly normal aeration of the paranasal sinuses. There is no pathologic enhancement. IMPRESSION: Negative exam. No evidence of sinusitis.
== END | disposition home or self-care (01) ==
LOC: RADCTMAIN 16:24
PROVIDERS: ATTEND Nurse Practitioner
DX: J01.00 Acute maxillary sinusitis, unspecified (principal)
CPT/HCPCS: 70488; Q9967